=== PATIENT | male | born 1990 | race Caucasian/White ===

== ENCOUNTER 2016-06-21 16:54 | Emergency (ER) | payer OTHER ==
[2016-06-21] MEDS ORDERED: NAPROXEN 250 MG TABLET PO ONE (17:37)
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
[2016-06-21 23:16] VITALS: BP 118/80
== END 2016-06-21 23:17 | disposition home or self-care (01) ==
LOC: ER 16:54
DX: M54.89 Other dorsalgia (principal); R10.9 Unspecified abdominal pain; R07.9 Chest pain, unspecified; M79.1 Myalgia; V49.40XA Driver injured in collision with unspecified motor vehicles in traffic accident, initial encounter; J45.909 Unspecified asthma, uncomplicated; F17.210 Nicotine dependence, cigarettes, uncomplicated; Z71.6 Tobacco abuse counseling
CPT/HCPCS: 71020; 76770; 99284